=== PATIENT | female | born 2000 | race African-American/Black ===

== ENCOUNTER 2021-08-04 14:33 | Day surgery (SDC) | payer BC, OTHER ==
[2021-08-04 15:25] VITALS: BMI 33.3
[2021-08-04 15:54] LABS: #Monocytes 0.5 10x3/uL (0.0-1.1); #Neutrophils 9.3 10x3/uL (1.5-8.4); %Basophils 0.3 % (0.0-2.0); %Eosinophils 0.3 % (0.0-6.0); %Lymphocytes 13.6 % (18.0-47.0); %Monocytes 4.5 % (0.0-10.0); %Neutrophils 80.6 % (40.0-75.0); Mean Corpuscular Hemoglobin 27.8 pg (27.0-33.0); Mean Corpuscular Volume 81.9 fl (81.6-98.3); Mean Platelet Volume 13.1 fl (7.4-10.4); Red Blood Cell (RBC) Count 4.31 10x6/uL (3.90-5.03); White Blood Cell (WBC) Count 11.5 10x3/uL (3.5-10.5)
[2021-08-04 15:57] LABS: Platelet Count 160 10x3/uL (150-450)
[2021-08-04 16:05] LABS: ALT (SGPT) 16 U/L (8-55); AST (SGOT) 12 U/L (5-34); Albumin 3.2 g/dL (3.5-5.0); Alkaline Phosphatase 79 U/L (40-110); Anion Gap 12 mmol/L (10-20); BUN (Urea Nitrogen) 7 mg/dL (7.0-18.7); Bilirubin, Total 0.2 mg/dL (0.2-1.2); Calc. Creatinine Clearance 174 mL/min (70-130); Calcium 9.7 mg/dL (7.8-10.44); Carbon Dioxide 23 mmol/L (22-29); Chloride 105 mmol/L (98-107); Globulin 3.6 g/dL (2.4-3.5); Glucose 237 mg/dL (70-105); Potassium 4.1 mmol/L (3.5-5.1); Protein, Total 6.8 g/dL (6.0-8.3); Sodium 136 mmol/L (136-145)
[2021-08-04 16:34] LABS: Creatinine, Urine 54.88 mg/dL (47-110)
[2021-08-04] MEDS ORDERED: hydrALAZINE 20 MG/ML VIAL SLOW IVP PRN ×2 (16:41→17:51)
== END 2021-08-04 17:40 | disposition home or self-care (01) ==
LOC: CSHLD/OP 14:33
PROVIDERS: ATTEND Obstetrics & Gynecology
DX: O99.891 Other specified diseases and conditions complicating pregnancy (principal); O24.113 Pre-existing type 2 diabetes mellitus, in pregnancy, third trimester; R03.0 Elevated blood-pressure reading, without diagnosis of hypertension; Z3A.30 30 weeks gestation of pregnancy; Z79.4 Long term (current) use of insulin; Z79.899 Other long term (current) drug therapy
CPT/HCPCS: 80053; 82570; 84156; 85025; 99283

== ENCOUNTER 2021-12-21 12:19 | Emergency (ER) | payer BC, OTHER | END 2021-12-21 14:52 | disposition home or self-care (01) | LOC: CSHERS 12:19 | DX: L02.415 Cutaneous abscess of right lower limb (principal); E11.9 Type 2 diabetes mellitus without complications; Z79.4 Long term (current) use of insulin | CPT/HCPCS: 10060 ==